=== PATIENT | female | born 1985 | race Caucasian/White ===

== ENCOUNTER → 2017-04-27 | Outpatient (CLI) | payer OTHER ==
--- NOTE | 2017-04-27 11:23 | US ---
EXAMINATION TYPE: US abdomen complete DATE OF EXAM: 04/27/2017 COMPARISON: NONE CLINICAL HISTORY: Epigastric swelling, mass, lump R19.06. Epigastric swelling. EXAM MEASUREMENTS: Liver Length: 13.2 cm Gallbladder Wall: 0.19 cm CBD: 0.18 cm Spleen: 9.1 cm Right Kidney: 9.4 x 2.7 x 4.4 cm Left Kidney: 9.0 x 4.0 x 3.8 cm Pancreas: wnl Liver: wnl Gallbladder: wnl Evidence for sonographic Umaña's sign: No CBD: wnl Spleen: wnl Right Kidney: wnl Left Kidney: wnl Upper IVC: wnl Abd Aorta: wnl The liver is homogenous. The intrahepatic portion of the IVC and visualized abdominal aorta are with in normal limits. There is no evidence of cholelithiasis. Common bile duct is unremarkable. The vi sualized portions of the pancreas are homogenous. The spleen is unremarkable. Kidneys are symmetric and free of hydronephrosis. No renal lesions are seen. IMPRESSION: Unremarkable study.
== END | disposition home or self-care (01) ==
LOC: RADUSWWP 10:17
PROVIDERS: ATTEND Family Medicine
DX: R19.06 Epigastric swelling, mass or lump (principal)
CPT/HCPCS: 76700